=== PATIENT | male | born 1965 | race Caucasian/White ===

== ENCOUNTER 2022-05-09 08:09 | Emergency (ER) | payer MEDICAID ==
[~2022-05-09] VITALS: Ht 165.1 cm; Wt 79.0 kg
[2022-05-09 08:18] VITALS: BP 120/79
[2022-05-09] MEDS ORDERED: TETANUS, DIPHTHERIA, PERTUSSIS VAC/PF 0.5ML (>10YR OLD) IM ONE (09:00)
[2022-05-09] MEDS ORDERED: IBUP-2029 MT (09:18)
[2022-05-09] MEDS ORDERED: MUPI22OI2 TP (09:18)
== END 2022-05-09 10:13 | disposition home or self-care (01) ==
LOC: ER 08:09
DX: S91.202A Unspecified open wound of left great toe with damage to nail, initial encounter (principal); S90.212A Contusion of left great toe with damage to nail, initial encounter; W22.8XXA Striking against or struck by other objects, initial encounter; E11.9 Type 2 diabetes mellitus without complications; Y93.01 Activity, walking, marching and hiking; Y92.89 Other specified places as the place of occurrence of the external cause
CPT/HCPCS: 73620; 82962; 90715; 99283; Z7610